=== PATIENT | male | born 1985 | race Caucasian/White ===

== ENCOUNTER 2024-06-28 06:05 | Emergency (ER) | payer MEDICAID, SELFPAY ==
[2024-06-28 06:06] VITALS: BP 110/66; PULSE 79; PULSE 83; RESP 18; TEMP 36.8; O2SAT 95; O2SAT 96
--- NOTE | 2024-06-28 06:23 | EKG_ITS ---
[facility] Test Date: 2024-06-28 Pat Name: HILARY ALCALA Department: Room: - Gender: Male [employer] Super[employer]: : 1985 Requested By: Dhruv Mauricio Order Number: [id number] Reading MD: Dhrvu Mauricio Measurements Intervals [place] Rate: 75 P: 47 NV: 139 QRS: 91 QRSD: 106 T: 48 QT: 357 QTc: 401 Interpretive Statements SINUS RHYTHM BORDERLINE RIGHT AXIS DEVIATION [QRS AXIS > 90] INCOMPLETE RIGHT BUNDLE BRANCH BLOCK [90+ ms QRS DURATION, TERMINAL R IN V1/V2, 40+ ms S IN I/aVL/V4/V5/V6] Compared to ECG 12/25/2017 21:56:32 Incomplete right bundle-branch block now present Sinus bradycardia no longer present /store/S0/[id number]/[id number].pdf
--- NOTE | 2024-06-28 06:23 | XR_ITS ---
Examination: AP chest single view Technique one AP portable upright chest single view Exam date and time: June 28, 2024 at 0711 hrs. Comparison 01/02/2022 Indications: Chest pain today Findings: Normal heart size Lungs are clear. The osseous structures are intact Impression: No active disease
--- NOTE | 2024-06-28 06:37 | EDNOTE_ITS ---
ED Syncope RME/HPI General Chief Complaint: Syncope / Near Syncope Stated Complaint: NEAR SYNCOPE Time Seen by Provider: 06/28/24 06:10 Arrival date/time: 06/28/24 06:05 RME / HPI RME / HPI narrative: Patient is a 39-year-old male recently under treatment for syphilis, gonorrhea, and chlamydia who was brought to the ED on 06/28/2024 in from the [facility] due to syncopal episode on the way to court. Per law enforcement, patient fell backwards and landed on his bottom without hit to head. Patient was then apparently unresponsive to painful stimuli for an estimated 10-15 minutes. Vital signs included BP 90/50, HR 79, RR 16, Temp 97.4, O2 saturation 97%, blood glucose 115. An IV line was started on the patient and he was given 1000 ml. By the time EMS arrived, patient was awake and alert and able to ambulate and respond verbally. Patient reports he is currently in the hospital because he fell but does not remember the events. Currently he is complaining of generalized body pains but no localized pain. He denies any headaches, dizziness, lightheadedness, palpitations, chest pain, or shortness of breath. Patient denies any known rashes or lesions on his body. Patient denies any known family history of cardiac disease, sudden cardiac , or arrhythmias. Patient states he was recently positive for syphilis, gonorrhea, and chlamydia via blood test that he requested and received 1 g IV ceftriaxone yesterday and is currently on doxycycline. Related Data Previous Rx's ?Medication ?Instructions ?Recorded amoxicillin 875 mg-potassium 1 tab PO BID #14 tabs 03/01 clavulanate 125 mg tablet doxycycline hyclate 100 mg capsule 100 mg PO BID #14 c aps 12/18/21 Allergies Allergy/AdvReac Type Severity Reaction Status Date / Time No Known Allergies Allergy Unverified 02/17/20 18:22 Past Medical History Past Medical History Comments PMH COMMENT: Past Medical History: No known past medical history Family History: Father with stroke, no known family history of cardiac disorders or sudden cardiac Surgical History: No surgical history Social History: Previous smoker, occasional former alcohol use, 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 Conversational and non-toxic appearing. HEENT: Normocephalic, atraumatic, mucous membranes moist. Heart: Regular rate and rhythm, no murmurs. Lungs: Clear to auscultation with no wheezing or crackles. Abdomen: Soft, nondistended, nontender, positive bowel sounds. ?No guarding or rebound tenderness. Neurologic: Alert and oriented x3, no gross neurological deficit, and patient able to move all 4 extremities. Extremities: No edema. Patient is handcuffed. Skin: No rash or ecchymoses. Course Quality Measures none Orders Category Date Time Status Bedside COVID-19 Antigen Test NOW Care 06/28/24 06:29 Completed Bedside Influenza A&B Antigen Test NOW Care 06/28/24 06:29 Completed EKG (ED ONLY) *Do not use* NOW Care 06/28/24 06:23 Completed EKG (ED Only) Stat Exams 06/28/24 06:23 Draft XR chest 1V portable Stat Exams 06/28/24 06:23 Completed B-Type Natriuretic Peptide Stat Lab 06/28/24 06:50 Completed CBC Stat Lab 06/28/24 06:50 Completed Comprehensive Metabolic Panel Stat Lab 06/28/24 06:50 Completed Drug Screen,Urine Stat Lab 06/28/24 08:52 Completed Lipase Stat Lab 06/28/24 06:50 Completed Magnesium Stat Lab 06/28/24 06:50 Completed Troponin I Stat Lab 06/28/24 06:50 Completed Urinalysis Stat Lab 06/28/24 08:52 Completed Urinalysis, C/S if Indicated Stat Lab 06/28/24 08:52 Completed Vital Signs Vital signs: Vital Signs Temperature 98.2 F 06/28/24 06:06 Pulse Rate 83 06/28/24 06:06 Respiratory Rate 18 06/28/24 06:06 Blood Pressure 110/66 06/28/24 06:06 Pulse Oximetry (%) 95 06/28/24 06:06 Oxygen Delivery Method Room Air 06/28/24 06:06 Procedures -ED EKG Interpretation #1: Date of EK06/28/24 Time of EK:38 Rate: 75 Interpretation: Interpreted by me EKG Impression: Normal sinus rhythm, No acute ST-T changes, Normal QRS, Normal intervals and Normal axis Additional EKG comment: Normal EKG according to my interpretation Syncope MDM Narrative MDM Narrative:: Lab results, EKG, and CXR results are negative for any sort of acute finding which may have caused a syncope including cardiac arrhythmias, electrolyte disturbances, according to the snapshot of these findings. Currently there is no history or clinical findings to suggest more dangerous etiology including but not limited to pulmonary embolus, aortic dissection, aortic coarctation, stroke, seizure, TIA, Boerhaave's, or GI bleeding. There is a possibility of Jarisch-Herxheimer reaction since the patient received one dose of ceftriaxone yesterday and endorses myalgias, however he is not tachycardic or febrile and not complaining of headache. Patient will be stable for discharge back to [facility]. Patient data External records reviewed:: [facility] previous records and EMS form Clinical information provided by:: patient, EMS and law enforcement Social determinants that could affect healthcare access:: none Patient has the following chronic illnesses:: As above How is presenting disease/condition affected by chronic disease/condition?: uneffected by Evaluation data The following diagnostics were reviewed and interpreted by me:: lab results, radiology exam(s) and EKG tracing(s) Lab and/or radiology exams considered but not ordered:: Ordered Interpretation Summary: EKG is normal according to my interpretation, normal sinus rhythm without ST changes. CXR is normal according to my interpretation, no pneumonia, no vascular congestion. CBC is remarkable for normocytic anemia with Hgb 11.5. WBC is slightly elevated at 14.1 which may be in the setting of chlamydia/gonorrhea and syphilis infection. UA showed positive leukocyte esterase but only 9 WBCs and no bacteria so is negative according to my interpretation. Urine toxicology is negative. Medications / Prescriptions Medications or Prescriptions considered but not ordered:: Given Medication administrations:: Given Consultations Consultation(s) initiated? (list below): No Diagnosis Syncope Differential Diagnosis: syncope due to orthostatic hypotension and vasovagal syncope Most likely diagnosis given after review of the tests above:: Vasovagal syncope Admission Indicated Admission indicated?: not indicated Admission Request Was there a request for admission?: No Disposition Plan Disposition Plan: Discharge Discharge Attestation Discharge Attestation: The patient and all family members were given an opportunity to ask questions and understood the discharge instructions. Discharge instructions specifically effects, indications for sooner follow up or return to the emergency department, and the expected course of current diagnosis. Patient condition: Stable Discharge Plan Plan Patient Disposition: Retirement/Court/Law Disposition Comment: Stable for discharge back to [facility] Patient condition on transfer: Stable Prescriptions/Referrals Prescriptions/Med Rec: No Action amoxicillin-pot clavulanate 875-125 mg tablet 1 tab PO BID Qty: 14 0RF doxycycline hyclate 100 mg capsule 100 mg PO BID Qty: 14 0RF Referrals: No Primary/Family,Physician [Primary Care Provider] - In 1 week Problem List Clinical Impression: Vasovagal syncope, Dehydration, Incarceration Patient/Caregiver Discharge Instructions Education Materials: Causes of Syncope, Dehydration, Treatment for Vasovagal Syncope, Understanding Vasovagal Syncope, ED Fainting, Vagal Reaction Additional Instructions: While in the ER you had several tests done to determine any underlying cause for the fainting episode. You most likely had what is called a vasovagal syncope. This is a benign fainting episode that can happen to anyone, and often can be triggered by dehydration, tight clothing, emotional events, or medications. You lab results show that you are slightly anemic as your hemoglobin level was 11.5 and the normal range is typically 13.5-16.0. Your white blood cell count which is typically a marker for infection or inflammation was also slightly high at 14.1 and the normal range is typically 3.8-10.6. This can be due to the underlying infection that you are already receiving treatment for. Your urine tests were negative for any underlying infection or drug toxicology. We recommend that you see a doctor in the clinic for a follow up of the complete blood count in a few weeks to see if it is still abnormal. Please continue taking your medication as prescribed. Please aggressively hydrate and try to drink 2 liters of water in the next 12 hours. Eat and drink as normal and resume regular activity, no restrictions. Please return to the ED for any worsening of symptoms or sudden weakness, shortness of breath, or chest pain. Print Language: Guamanian Attestation Attestation I, Dhruv Mauricio MD, have reviewed the history, exam, and assessment of the patient. I have evaluated the patient independently and agree with the plan of care documented by [ ]. All diagnostic studies were reviewed and discussed. I confirm the diagnosis as documented by the Resident. I was present during the Medical Decision Making for this patient. The patient's plan of care was created between myself and the Resident and consistent with our discussion of the patient's case. This patient does not appear to be acutely ill in any way medical workup for syncope was negative. Patient stood and walked without any difficulty. He ate and drank without any vomiting and does not appear to be ill in that way. Labs are unremarkable. QT interval was within normal limits on the EKG. It is interesting that he is being treated for syphilis gonorrhea and chlamydia and whether he could be having an early Andrew Herxheimer reaction causing some secondary spacing of fluids causing some relative dehydration is relative possibility. Examination of his body revealed no obvious rash though. Either way he was safe to go back to [facility] and continue his treatments.
--- NOTE | 2024-06-28 07:20 | PC.NURSE ---
REPORT RECEIVED AT THIS TIME; PER REPORT, PT COMING IN FOR NEAR SYNCOPE EPISODE; PT COMING FROM NURSING HOME. PT FOUND IN HIS CELL 'UNRESPONSIVE.' FACILITY STAFF ABLE TO STARTED IV ON PT AND GAVE NS. EN ROUTE WITH EMS, PT WAS RESPONDING TO [facility]. PT DENIES ANY PMH BUT STATES HE WAS TREATED FOR GONORRHEA AND SYPHILIS. PT CONNECTED TO MONITORS AT THIS TIME.
[2024-06-28 07:21] VITALS: BP 104/57; PULSE 70; RESP 14; TEMP 37.1; O2SAT 95
[2024-06-28 07:30] LABS: Basophils % (Auto) 0 % (0-2.5); Eosinophils % (Auto) 0 % (0-10); Hematocrit 34.6 % (41.0-53.0); Hemoglobin 11.5 g/dL (13.5-16.0); Immature Granulocytes % (Auto) 1 % (0-0); Immature Granulocytes Auto 0.07 Thou/mm3 (0.00-0.00); Lymphocytes # (Auto) 0.7 Thou/mm3 (1.0-4.8); Lymphocytes % (Auto) 5 % (10-50); Mean Corpuscular HGB Conc 33.2 g/dl (31.0-37.0); Mean Corpuscular Hemoglobin 29.4 pg (25.0-35.0); Mean Corpuscular Volume 89 fL (80-100); Monocytes # (Auto) 1.5 Thou/mm3 (0.0-0.8); Monocytes % (Auto) 10 % (0-12); Neutrophils # (Auto) 11.8 Thou/mm3 (1.8-7.7); Neutrophils % (Auto) 84 % (37-80); Nucleated Red Blood Cell % 0 /100 WBC (0); Platelet Count 276 Thou/mm3 (140-440); RDW Standard Deviation 40.3 fL (35.1-43.9); Red Blood Count 3.91 Miln/mm3 (4.50-5.90); White Blood Count 14.1 Thou/mm3 (3.8-10.6)
[2024-06-28 07:47] LABS: Alanine Aminotransferase 59 U/L (10-49); Albumin, Serum 3.2 gm/dL (3.5-5.0); Alkaline Phosphatase 86 U/L (46-116); Anion Gap 7 (7-16); Aspartate Amino Transferase 59 U/L (0-34); BUN/Creatinine Ratio 18 Ratio (12-20); Bilirubin,Total 0.2 mg/dL (0.3-1.2); Blood Urea Nitrogen 14 mg/dL (9-23); Calcium 8.5 mg/dL (8.3-10.6); Calcium (Corrected) 9.1 mg/dL (8.5-10.1); Carbon Dioxide 26.3 mMol/L (20.0-31.0); Chloride 105 mMol/L (98-107); Creatinine (Component) 0.8 mg/dL (0.6-1.3); Globulin 3.2 gm/dL (2.3-3.5); Glucose 119 mg/dL (74-106); Lipase 31 U/L (12-53); Magnesium 1.6 mg/dL (1.6-2.6); Osmolality,Calculated 277 (275-295); Sodium 138 mMol/L (136-145); Total Protein 6.4 gm/dL (5.7-8.2); Troponin I < 0.002 ng/mL (0.0-0.045); eGFR > 60 See Note
[2024-06-28 07:51] LABS: B-Type Natriuretic Peptide 37 pg/mL (0-100)
[2024-06-28 09:01] LABS: Collection Type, Urine Clean Catch; Squamous Epithelial Cell,Urine 0 /hpf (0-5)
[2024-06-28 09:12] LABS: Bilirubin,Urine Negative (Negative); Blood,Urine Negative (Negative); Clarity,Urine Clear (Clear/Hazy); Color,Urine Lt-Yellow (Lt Yel-Yel); Culture Indicated,Urine Not Indicated; Glucose, Urine Negative (Negative); Ketones,Urine Negative (Negative); Leukocyte Esterase,Urine Positive (Negative); Nitrite,Urine Negative (Negative); PH,Urine 6.5 (5.0-7.0); Protein,Urine Negative (Neg - Trace); RBC,Urine 1 /hpf (0-3); Specific Gravity,Urine 1.015 (1.001-1.035); Urobilinogen,Urine Negative mg/dL (0.0-1.0); WBC,Urine 9 /hpf (0-5)
[2024-06-28 09:18] LABS: Amphetamine/Methamp Scrn,U Negative (Negative); Barbiturate Screen,Urine Negative (Negative); Benzodiazepines Screen,Urine Negative (Negative); Benzoylecgonine Screen, Ur Negative (Negative); Fentanyl Screen,Urine Negative (Negative); Opiate Screen,Urine Negative (Negative); THC Screen,Urine Negative (Negative)
[2024-06-28 09:47] VITALS: BP 101/96; PULSE 69; RESP 14; TEMP 36.8; O2SAT 97
--- NOTE | 2024-06-28 11:09 | PC.NURSE ---
PER DR. MAHMOOD, PO CHALLENGE AND AMBUALTE PT. PT GIVEN TURKEY SANDWICH AND APPLE JUICE. PT ATE 100% OF SANDWICH AND DRANK ALL OF APPLE JUICE. PT AMBULATED AROUND ROOM WITH STEADY GAIT INDEPENDENTLY.
[2024-06-28 11:10] VITALS: BP 113/65; PULSE 788; RESP 18; TEMP 36.8
== END 2024-06-28 11:17 ==
PROVIDERS: Emergency Provider Emergency Medicine
DX: R55 Syncope and collapse (principal); E86.0 Dehydration
CPT/HCPCS: 36415; 71045; 80053; 80307; 81001; 83690; 83735; 83880; 84484; 85025; 87400; 87811; 93005; 99283

== ENCOUNTER 2024-07-17 23:11 | Emergency (ER) | payer MEDICAID, SELFPAY ==
[2024-07-17 23:14] VITALS: PULSE 70; RESP 18; O2SAT 99
--- NOTE | 2024-07-17 23:28 | PC.NURSE ---
PATIENT NOTED TO BE LAYING ON LOBBY FLOOR, THIS NURSE SPOKE WITH PATIENT. PATIENT DENIES FALLING. PATIENT STATES THAT HE LAID DOWN ON FLOOR TO GET MORE COMFORTABLE AND DID NOT FALL. PATIENT GIVEN TWO PILLOWS FOR COMFORT AND ASSISTED BACK INTO CHAIR.
[2024-07-18 00:56] VITALS: BP 116/73; PULSE 86; RESP 18; TEMP 36.6; O2SAT 99; BMI 29.5
--- NOTE | 2024-07-18 01:00 | XR_ITS ---
Examination: Abdomen sonogram, Limited Date and time of exam: July 18, 2024 0153 hrs. Indications: Right groin pain today Technique: Real-time hair scale transabdominal sonographic images of the right groin obtained. Findings: No hernia or free fluid or mass in the right groin noted Impression: Negative examination
--- NOTE | 2024-07-18 01:03 | PD.EDRME ---
Rapid Medical Screening Exam RME Arrival date/time: 07/17/24 23:11 39 yo m with c/o of ongoing right groin pain hx of hernia I have greeted and performed a focused initial assessment of this patient. A comprehensive ED assessment and evaluation of the patient, analysis of all test results, and completion of the medical decision making process will be conducted by additional ED providers. Chief Complaint: Abdominal Pain Time Seen by Provider: 07/18/24 00:48 Vital signs: Vital Signs Temperature 97.9 F 07/18/24 00:56 Pulse Rate 86 07/18/24 00:56 Respiratory Rate 18 07/18/24 00:56 Blood Pressure 116/73 07/18/24 00:56 Pulse Oximetry (%) 99 07/18/24 00:56 Oxygen Delivery Method Room Air 07/18/24 00:56
[2024-07-18] MEDS: ACETAMINOPHEN 500 MG TABLET 1000 MG PO (01:08)
--- NOTE | 2024-07-18 02:44 | PRELIM_ITS ---
Limited abdominal ultrasound; dated July 18, 2024 at 0153 hours Clinical history: Right pelvic pain, r/o hernia. Findings and Impression: Limited images of the right groin are submitted. No hernia or collection is demonstrated. No free fluid is seen. Report Electronically Signed By: Red Fried 07/18/2024 2:43:30 AM [EST]
[2024-07-18 05:36] VITALS: BP 107/58; PULSE 53; RESP 17; TEMP 36.4; O2SAT 99
[2024-07-18] MEDS: ONDANSETRON ODT 4 MG TABRAP PO (06:56)
[2024-07-18 07:50] LABS: Basophils % (Auto) 0 % (0-2.5); Eosinophils % (Auto) 0 % (0-10); Hematocrit 42.9 % (41.0-53.0); Hemoglobin 14.3 g/dL (13.5-16.0); Immature Granulocytes % (Auto) 0 % (0-0); Immature Granulocytes Auto 0.03 Thou/mm3 (0.00-0.00); Lymphocytes # (Auto) 1.2 Thou/mm3 (1.0-4.8); Lymphocytes % (Auto) 14 % (10-50); Mean Corpuscular HGB Conc 33.3 g/dl (31.0-37.0); Mean Corpuscular Hemoglobin 29.5 pg (25.0-35.0); Mean Corpuscular Volume 89 fL (80-100); Monocytes # (Auto) 0.6 Thou/mm3 (0.0-0.8); Monocytes % (Auto) 6 % (0-12); Neutrophils % (Auto) 79 % (37-80); Nucleated Red Blood Cell % 0 /100 WBC (0); Platelet Count 254 Thou/mm3 (140-440); RDW Standard Deviation 42.5 fL (35.1-43.9); Red Blood Count 4.84 Miln/mm3 (4.50-5.90); White Blood Count 8.9 Thou/mm3 (3.8-10.6)
[2024-07-18 08:05] LABS: Alanine Aminotransferase 18 U/L (10-49); Albumin, Serum 4.9 gm/dL (3.5-5.0); Albumin/Globulin Ratio 1.3 (1.2-2.2); Alkaline Phosphatase 84 U/L (46-116); Anion Gap 6 (7-16); Aspartate Amino Transferase 19 U/L (0-34); BUN/Creatinine Ratio 18 Ratio (12-20); Bilirubin,Total 0.6 mg/dL (0.3-1.2); Blood Urea Nitrogen 18 mg/dL (9-23); Calcium 10.1 mg/dL (8.3-10.6); Calcium (Corrected) 10.1 mg/dL (8.5-10.1); Carbon Dioxide 30.6 mMol/L (20.0-31.0); Chloride 104 mMol/L (98-107); Estimated Creatinine Clearance 111.5 mL/min (>60); Globulin 3.7 gm/dL (2.3-3.5); Glucose 122 mg/dL (74-106); Osmolality,Calculated 284 (275-295); Potassium 4.3 mMol/L (3.4-5.1); Sodium 141 mMol/L (136-145); Total Protein 8.6 gm/dL (5.7-8.2); eGFR > 60 See Note
--- NOTE | 2024-07-18 08:25 | EDNOTE_ITS ---
ED Abdominal Pain RME/HPI General Chief Complaint: Abdominal Pain Stated complaint: RIGHT GROIN PAIN Time seen by provider: 07/18/24 00:48 Arrival date/time: 07/17/24 23:11 39-year-old male with no known medical history presents to the emergency room with a chief complaint of right lower groin pain x 1 week. Patient states he has a history of a hernia. Source: patient Mode of arrival: ambulatory Limitations: no limitations RME / HPI RME / HPI narrative: 07/17/24 23:11 39 yo m with c/o of ongoing right groin pain hx of hernia I have greeted and performed a focused initial assessment of this patient. A comprehensive ED assessment and evaluation of the patient, analysis of all test results, and completion of the medical decision making process will be conducted by additional ED providers. Related Data Previous Rx's ?Medication ?Instructions ?Recorded amoxicillin 875 mg-potassium 1 tab PO BID #14 tabs 03/01 clavulanate 125 mg tablet doxycycline hyclate 100 mg capsule 100 mg PO BID #14 c aps 12/18/21 ondansetron 4 mg disintegrating 4 mg PO Q8H PRN nausea and 07/18/24 tablet vomiting #14 tabs Allergies Allergy/AdvReac Type Severity Reaction Status Date / Time No Known Allergies Allergy Verified 07/17/24 23:16 Review of Systems Review of Systems Systems Reviewed: All systems reviewed, normal except as documented Constitutional Constitutional: Reports system reviewed and no additional complaints, except as documented, Denies fatigue, Denies fever(s), Denies headache(s) and Denies weakness Eyes Eyes: Reports system reviewed and no additional complaints, except as documented, Denies blurry vision and Denies change in vision ENT Ears, Nose, Mouth, and Throat: Reports system reviewed and no additional complaints, except as documented, Denies otalgia, Denies headache(s), Denies nasal congestion, Denies throat swelling and Denies vertigo Cardiovascular Cardiovascular: Reports system reviewed and no additional complaints, except as documented, Denies chest pain, Denies dyspnea and Denies dyspnea on exertion Respiratory Respiratory: Reports system reviewed and no additional complaints, except as documented, Denies chest congestion, Denies cough, Denies dyspnea, Denies dyspnea on exertion and Denies wheezing Gastrointestinal Gastrointestinal: Reports system reviewed and no additional complaints, except as documented, Reports abdominal pain, Reports cramping, Reports nausea and Reports vomiting Genitourinary Genitourinary: Reports system reviewed and no additional complaints, except as documented, Denies dysuria and Denies hematuria Musculoskeletal Musculoskeletal: Reports system reviewed and no additional complaints, except as documented and Denies back pain Integumentary/Breasts Skin/Breast: Reports system reviewed and no additional complaints, except as documented and Denies wounds Neurologic Neurologic: Reports system reviewed and no additional complaints, except as documented, Denies confusion, Denies headache(s), Denies lack of coordination, Denies vertigo and Denies weakness Psychiatric Psychiatric: Reports system reviewed and no additional complaints, except as documented, Denies anxiety, Denies confusion, Denies depression, Denies paranoia, Denies suicidal ideation and Denies tactile hallucinations Endocrine Endocrine: Reports system reviewed and no additional complaints, except as documented and Denies fatigue Hematologic/Lymphatic Hematologic/Lymphatic: Reports system reviewed and no additional complaints, except as documented and Denies lymphadenopathy Allergic/Immunologic Allergic/Immunologic: Reports system reviewed and no additional complaints, except as documented, Denies throat swelling, Denies urticaria and Denies wheezing Past Medical History Past Medical History CARDIAC: Negative Congestive Heart Failure RESPIRATORY: Negative Chronic Obstructive Pulmonary Disease (COPD) GENITOURINARY: Negative Renal Disease ENDOCRINE: Negative Diabetes Mellitus Type 1 or Diabetes Mellitus Type 2 Social History SMOKING STATUS: Current every day smoker ED Exam General Limitations: Present no limitations General appearance: Present alert and in no apparent distress Head Head exam: Present atraumatic Eye Eye exam: Present normal appearance, PERRL and EOMI ENT ENT exam: Present normal exam, normal oropharynx and mucous membranes moist Neck Neck exam: Present normal inspection, full ROM and trachea midline Chest Chest inspection: Present normal inspection and symmetric chest wall rise Respiratory Respiratory exam: Present normal lung sounds bilaterally Cardiovascular Cardiovascular exam: Present regular rate, normal rhythm and normal heart sounds Abdominal Exam Abdominal exam: Present soft, tenderness and normal bowel sounds; Absent tendern ess at [place]'s Point Abdominal tenderness: Present RLQ and mild Extremities Exam Extremities exam: Present normal inspection and full ROM Back Exam Back exam: Present normal inspection and full ROM Neurological Exam Neurological exam: Present alert, oriented X3 and CN II-XII intact Psychiatric Psychiatric exam: Present normal affect and normal mood Skin Skin exam: Present warm, dry, intact and normal color Course Quality Measures none Orders Category Date Time Status US abdomen limited Stat Exams 07/18/24 01:00 Taken CBC Stat Lab 07/18/24 07:07 Completed CMP [Comprehensive Metabolic Panel] Stat Lab 07/18/24 07:07 Completed Acetaminophen Tab [Tylenol ES Tab] Med 07/18/24 01:01 Discontinued 1,000 mg PO X1 ONE Ondansetron Odt [Zofran Odt] Med 07/18/24 06:36 Discontinued 4 mg PO X1 ONE Vital Signs Vital signs: Vital Signs Temperature 97.9 F 07/18/24 00:56 Pulse Rate 86 07/18/24 00:56 Respiratory Rate 18 07/18/24 00:56 Blood Pressure 116/73 07/18/24 00:56 Pulse Oximetry (%) 99 07/18/24 00:56 Oxygen Delivery Method Room Air 07/18/24 00:56 O2 saturation 99% within normal limits Abdominal Pain MDM MDM Narrative MDM Narrative:: 39-year-old male with no known medical history presents to the emergency room with a chief complaint of right lower groin pain x 1 week. Patient states he has a history of a hernia. Patient is hemodynamically stable and in no apparent distress Physical examination shows a soft nontender abdomen. Patient states he has mild tenderness with palpation to right lower groin area. An ultrasound of the abdomen was completed and was negative for any acute findings. There is no signs of any strangulated hernia. CBC and CMP were negative for any leukocytosis, electrolyte imbalance, or low H&H. Patient was discharged and educated to follow-up with his primary care provider in the next 24 to 48 hours and return to the emergency room for any evidence of worsening signs or symptoms Patient data External records reviewed:: [facility] previous records Clinical information provided by:: patient Social determinants that could affect healthcare access:: none Patient has the following chronic illnesses:: No chronic illness How is presenting disease/condition affected by chronic disease/condition?: no chronic disease Evaluation data The following diagnostics were reviewed and interpreted by me:: lab results and radiology exam(s) Lab and/or radiology exams considered but not ordered:: Labs and radiology exams considered and ordered Interpretation Summary: Ultrasound abdomen-Limited abdominal ultrasound; dated July 18, 2024 at 0153 hours Clinical history: Right pelvic pain, r/o hernia. Findings and Impression: Limited images of the right groin are submitted. No hernia or collection is demonstrated. No free fluid is seen. Medications / Prescriptions Medications or Prescriptions considered but not ordered:: Medication given Medication administrations:: Medication Administration History Discontinued Medications Acetaminophen (Acetaminophen 500 Mg Tablet) 1,000 mg PO X1 ONE Stop: 07/18/24 01:02 Last Admin: 07/18/24 01:08 Dose: 1,000 mg Documented By: TAYLOR Ondansetron HCl (Ondansetron Odt 4 Mg Tabrap) 4 mg PO X1 ONE; Protocol Stop: 07/18/24 06:37 Last Admin: 07/18/24 06:56 Dose: 4 mg Documented By: CATHI Medication given Consultations Consultation(s) initiated? (list below): No Diagnosis Differential diagnosis abdominal pain: abdominal pain, acute appendicitis, constipation, gastroenteritis and small bowel obstruction Most likely diagnosis given after review of the tests above:: Gastroenteritis Admission Indicated Admission indicated?: not indicated Admission Request Was there a request for admission?: No Disposition Plan Disposition Plan: Discharge Discharge Attestation Discharge Attestation: The patient and all family members were given an opportunity to ask questions and understood the discharge instructions. Discharge instructions specifically effects, indications for sooner follow up or return to the emergency department, and the expected course of current diagnosis. Patient condition: Stable Discharge Plan Plan Patient Disposition: HOME (Self Care) Disposition Comment: Stable Prescriptions/Referrals Prescriptions/Med Rec: New ondansetron 4 mg tablet,disintegrating 4 mg PO Q8H PRN (Reason: nausea and vomiting) Qty: 14 0RF No Action amoxicillin-pot clavulanate 875-125 mg tablet 1 tab PO BID Qty: 14 0RF doxycycline hyclate 100 mg capsule 100 mg PO BID Qty: 14 0RF Referrals: No Primary/Family,Physician [Primary Care Provider] - In 1 week Problem List Clinical Impression: Gastroenteritis Patient/Caregiver Discharge Instructions Education Materials: ED Gastroenteritis, Noninfectious Additional Instructions: Please follow-up with your primary care provider in the next 24 to 48 hours. Ultrasound of your lower abdomen was completed and was negative for any acute findings. Your blood work was drawn and there are no signs of infection or any acute findings. For any evidence of worsening signs or symptoms return to the emergency room immediately Print Language: Bangladeshi Stand Alone Forms: [employer] Award Info., Patient Portal Info Letter MALISSA/ROULA Supervising Physician MALISSA/ROULA Supervising Physician: Dr. Mauricio
== END 2024-07-18 08:31 | disposition home or self-care (01) ==
PROVIDERS: Nurse Practitioner Family; Emergency Provider Emergency Medicine
DX: K52.9 Noninfective gastroenteritis and colitis, unspecified (principal)
CPT/HCPCS: 36415; 76705; 80053; 81001; 85025; 99284; Q0162; A9270

== ENCOUNTER 2024-07-18 11:08 | Observation (INO) | payer MEDICAID, SELFPAY ==
[2024-07-18 11:10] VITALS: BMI 29.5
--- NOTE | 2024-07-18 11:22 | XR_ITS ---
EXAMINATION: CT abdomen pelvis wo con ORDERING PROVIDER: ROULA Pham HISTORY: abd pain TECHNIQUE: Without intravenous or oral contrast, CT was used in the volumetric, helical imaging acquisition of the abdomen and pelvis with 2-D and 3-D reformats generated on a separate workstation and submitted for interpretation. Institutional dose reducing protocols were utilized. Evaluation of hollow viscus and solid viscera is limited secondary to lack of intravenous and oral contrast. Imaging is motion degraded. RADIATION DOSE: DLP 402 mGy-cm COMPARISON: Same day abdominal ultrasound. FINDINGS: LIVER: Unremarkable. BILIARY: Unremarkable. PANCREAS: Unremarkable. SPLEEN: Unremarkable. ADRENAL GLANDS: Unremarkable. KIDNEYS: Unremarkable. URETERS: Unremarkable. BLADDER: Unremarkable. CT provides limited evaluation of the urinary bladder. HOLLOW VISCUS: There is a moderate colonic stool burden. Sigmoid colon is relatively decompressed. Extensive fecalization of the distal ileum is identified, which measures up to 3.2 cm. There is a small amount of free fluid about the cecum and terminal ileum. The appendix is nondilated. There is a small hiatal hernia. The stomach and proximal duodenum are significantly distended with ingested material. There is suggestion of some wall thickening of the terminal ileum with mild surrounding inflammatory changes. VASCULATURE: Limited evaluation without contrast. Grossly unremarkable. PELVIS: Normal. LYMPH NODES: There is a mildly enlarged left inguinal lymph node measuring up to 1.2 cm short axis, with additional prominent bilateral inguinal, pelvic sidewall, mesenteric, and retroperitoneal lymph nodes, which are not pathologically enlarged by imaging criteria. LUNG BASES: Normal. BONES: Mild degenerative changes bilateral hips in an osteoarthritic pattern. Small osteophytes thoracolumbar spine. ABDOMINAL WALL: Fat filled right greater than left inguinal canals, with small amount of pericecal fluid extending into the canal, where there is a 3.4 x 3.8 x 6.0 (AP by TV by CC) fluid collection measuring 16 Hounsfield units. IMPRESSION: 1. Fat and fluid filled right inguinal hernia, with pericecal and terminal ileum fluid/inflammatory changes with suggestion of mild wall thickening and distention of fecalized distal ileum. This could be the result of the cecum and terminal ileum being transiently incarcerated in the right inguinal hernia, resulting in upstream obstruction, and the incarcerated bowel spontaneously reducing before the CT. Additional differential considerations would include inflammatory bowel disease with inflammation and fluid extending into a right inguinal hernia or possibly sequelae of right testicular torsion. Consider surgical evaluation. 2. Mild left inguinal lymphadenopathy in the setting of prominent inguinal, pelvic, and abdominal, and retroperitoneal lymph nodes. These may be reactive or related to other systemic disease. Recommend correlation with history and clinical exam.
[2024-07-18 11:24] VITALS: BP 128/83; PULSE 104; RESP 18; TEMP 36.8; O2SAT 99
--- NOTE | 2024-07-18 11:26 | PD.EDABDPN ---
ED Abdominal Pain RME/HPI General Chief Complaint: Abdominal Pain Stated complaint: Lower and center abdominal pain, NV. Hernia dx Time seen by provider: 07/18/24 11:15 Arrival date/time: 07/18/24 11:08 39-year-old male with no known medical history presents to the emergency room with a chief complaint of 9 out of 10 abdominal pain and nausea. Patient was seen this morning and states his pain has progressively gotten worse Source: patient Mode of arrival: ambulatory Limitations: no limitations Related Data Previous Rx's ?Medication ?Instructions ?Recorded amoxicillin 875 mg-potassium 1 tab PO BID #14 tabs 12/18/21 clavulanate 125 mg tablet doxycycline hyclate 100 mg capsule 100 mg PO BID #14 caps 12/18/21 ondansetron 4 mg disintegrating 4 mg PO Q8H PRN nausea and 07/18/24 tablet vomiting #14 tabs Allergies Allergy/AdvReac Type Severity Reaction Status Date / Time No Known Allergies Allergy Verified 07/17/24 23:16 Review of Systems Review of Systems Systems Reviewed: All systems reviewed, normal except as documented Constitutional Constitutional: Reports system reviewed and no additional complaints, except as documented, Denies fatigue, Denies fever(s), Denies headache(s) and Denies weakness Eyes Eyes: Reports system reviewed and no additional complaints, except as documented, Denies blurry vision and Denies change in vision ENT Ears, Nose, Mouth, and Throat: Reports system reviewed and no additional complaints, except as documented, Denies otalgia, Denies headache(s), Denies nasal congestion, Denies throat swelling and Denies vertigo Cardiovascular Cardiovascular: Reports system reviewed and no additional complaints, except as documented, Denies chest pain, Denies dyspnea and Denies dyspnea on exertion Respiratory Respiratory: Reports system reviewed and no additional complaints, except as documented, Denies chest congestion, Denies cough, Denies dyspnea, Denies dyspnea on exertion and Denies wheezing Gastrointestinal Gastrointestinal: Reports system reviewed and no additional complaints, except as documented, Reports abdominal pain, Reports cramping, Reports nausea and Reports vomiting Genitourinary Genitourinary: Reports system reviewed and no additional complaints, except as documented, Denies dysuria and Denies hematuria Musculoskeletal Musculoskeletal: Reports system reviewed and no additional complaints, except as documented and Denies back pain Integumentary/Breasts Skin/Breast: Reports system reviewed and no additional complaints, except as documented and Denies wounds Neurologic Neurologic: Reports system reviewed and no additional complaints, except as documented, Denies confusion, Denies headache(s), Denies lack of coordination, Denies vertigo and Denies weakness Psychiatric Psychiatric: Reports system reviewed and no additional complaints, except as documented, Denies anxiety, Denies confusion, Denies depression, Denies paranoia, Denies suicidal ideation and Denies tactile hallucinations Endocrine Endocrine: Reports system reviewed and no additional complaints, except as documented and Denies fatigue Hematologic/Lymphatic Hematologic/Lymphatic: Reports system reviewed and no additional complaints, except as documented and Denies lymphadenopathy Allergic/Immunologic Allergic/Immunologic: Reports system reviewed and no additional complaints, except as documented, Denies throat swelling, Denies urticaria and Denies wheezing Past Medical History Past Medical History CARDIAC: Negative Congestive Heart Failure RESPIRATORY: Negative Chronic Obstructive Pulmonary Disease (COPD) GENITOURINARY: Negative Renal Disease ENDOCRINE: Negative Diabetes Mellitus Type 1 or Diabetes Mellitus Type 2 Social History SMOKING STATUS: Current every day smoker ED Exam General Limitations: Present no limitations General appearance: Present alert and in no apparent distress Head Head exam: Present atraumatic Eye Eye exam: Present normal appearance, PERRL and EOMI ENT ENT exam: Present normal exam, normal oropharynx and mucous membranes moist Neck Neck exam: Present normal inspection, full ROM and trachea midline Chest Chest inspection: Present normal inspection and symmetric chest wall rise Respiratory Respiratory exam: Present normal lung sounds bilaterally Cardiovascular Cardiovascular exam: Present regular rate, normal rhythm and normal heart sounds Abdominal Exam Abdominal exam: Present soft, tenderness and normal bowel sounds; Absent distention, guarding, rebound or rigidity Abdominal tenderness: Present diffuse and moderate Extremities Exam Extremities exam: Present normal inspection and full ROM Back Exam Back exam: Present normal inspection and full ROM Neurological Exam Neurological exam: Present alert, oriented X3 and CN II-XII intact Psychiatric Psychiatric exam: Present normal affect and normal mood Skin Skin exam: Present warm, dry, intact and normal color Course Quality Measures none Orders Category Date Time Status CT abdomen pelvis wo con Stat Exams 07/18/24 11:22 Ordered Drug Screen,Urine Stat Lab 07/18/24 11:23 Ordered UA, C/S IF [Urinalysis, C/S if Indicated] Stat Lab 07/18/24 11:23 Ordered Vital Signs Vital signs: Vital Signs Temperature 98.2 F 07/18/24 11:24 Pulse Rate 104 H 07/18/24 11:24 Respiratory Rate 18 07/18/24 11:24 Blood Pressure 128/83 07/18/24 11:24 Pulse Oximetry (%) 99 07/18/24 11:24 Oxygen Delivery Method Room Air 07/18/24 11:24 O2 saturation 99% within normal limits Abdominal Pain MDM MDM Narrative MDM Narrative:: 39-year-old male with no known medical history presents to the emergency room with a chief complaint of 9 out of 10 abdominal pain and nausea. Patient was seen this morning and states his pain has progressively gotten worse Patient data External records reviewed:: [facility] previous records Clinical information provided by:: patient Social determinants that could affect healthcare access:: none Patient has the following chronic illnesses:: No chronic illness How is presenting disease/condition affected by chronic disease/condition?: no chronic disease Evaluation data The following diagnostics were reviewed and interpreted by me:: lab results and radiology exam(s) Lab and/or radiology exams considered but not ordered:: Labs and radiology exams considered and ordered Interpretation Summary: CT abdomen and pelvis- Medications / Prescriptions Medications or Prescriptions considered but not ordered:: No medication given Medication administrations:: No medication given Consultations Consultation(s) initiated? (list below): No Diagnosis Differential diagnosis abdominal pain: abdominal pain, acute appendicitis, constipation, diverticulitis, gastroenteritis and small bowel obstruction Admission Indicated Admission indicated?: not indicated Admission Request Was there a request for admission?: No Disposition Plan Disposition Plan: Discharge Discharge Attestation Discharge Attestation: The patient and all family members were given an opportunity to ask questions and understood the discharge instructions. Discharge instructions specifically effects, indications for sooner follow up or return to the emergency department, and the expected course of current diagnosis. Patient condition: Stable Discharge Plan Prescriptions/Referrals Prescriptions/Med Rec: No Action amoxicillin-pot clavulanate 875-125 mg tablet 1 tab PO BID Qty: 14 0RF doxycycline hyclate 100 mg capsule 100 mg PO BID Qty: 14 0RF ondansetron 4 mg tablet,disintegrating 4 mg PO Q8H PRN (Reason: nausea and vomiting) Qty: 14 0RF Patient/Caregiver Discharge Instructions Print Language: Omani
--- NOTE | 2024-07-18 12:28 | PD.EDRME ---
Rapid Medical Screening Exam [facility] Arrival date/time: 07/18/24 11:08 39-year-old male with no known medical history presents to the emergency room with a chief complaint of 9 out of 10 abdominal pain and nausea. Patient was seen this morning and states his pain has progressively gotten worse I have greeted and performed a focused initial assessment of this patient. A comprehensive ED assessment and evaluation of the patient, analysis of all test results, and completion of the medical decision making process will be conducted by additional ED providers. Chief Complaint: Abdominal Pain Time Seen by Provider: 07/18/24 11:15 Vital signs: Vital Signs Temperature 98.2 F 07/18/24 11:24 Pulse Rate 104 H 07/18/24 11:24 Respiratory Rate 18 07/18/24 11:24 Blood Pressure 128/83 07/18/24 11:24 Pulse Oximetry (%) 99 07/18/24 11:24 Oxygen Delivery Method Room Air 07/18/24 11:24 Vital signs reviewed by provider: Yes
--- NOTE | 2024-07-18 13:39 | PC.NURSE ---
PT FOUND LAYING ON GROUND OUTSIDE BY BYSTANDER. SECURITY LOOKED BACK ON SECURITY CAMERA, AND PT GOT OUT OF WHEELCHAIR AND LAID HIMSELF ON THE GROUND
[2024-07-18 14:56] VITALS: BP 120/82; PULSE 90; RESP 18; TEMP 36.8; O2SAT 99
--- NOTE | 2024-07-18 16:00 | EDNOTE_ITS ---
ED Abdominal Pain RME/HPI General Chief Complaint: Abdominal Pain Stated complaint: Lower and center abdominal pain, NV. Hernia dx Time seen by provider: 07/18/24 11:15 Arrival date/time: 07/18/24 11:08 RME / HPI RME / HPI narrative: 07/18/24 11:08 39-year-old male with no known medical history presents to the emergency room with a chief complaint of 9 out of 10 abdominal pain and nausea. Patient was seen this morning and states his pain has progressively gotten worse I have greeted and performed a focused initial assessment of this patient. A comprehensive ED assessment and evaluation of the patient, analysis of all test results, and completion of the medical decision making process will be conducted by additional ED providers. Related Data Previous Rx's ?Medication ?Instructions ?Recorded amoxicillin 875 mg-potassium 1 tab PO BID #14 tabs 03/01 clavulanate 125 mg tablet doxycycline hyclate 100 mg capsule 100 mg PO BID #14 c aps 12/18/21 ondansetron 4 mg disintegrating 4 mg PO Q8H PRN nausea and 07/18/24 tablet vomiting #14 tabs Allergies Allergy/AdvReac Type Severity Reaction Status Date / Time No Known Allergies Allergy Verified 07/17/24 23:16 ED Exam Narrative Physical exam: Physical Exam: General: The vital signs were reviewed. The patient is non-toxic, in no apparent distress and appears healthy with a patent airway, no respiratory distress and has no apparent circulatory problems. Head & Scalp: Normocephalic, atraumatic. Face: Appears normal and is without lesions, deformity. Ears: Left external pinna appears normal. Right external pinna appears normal. Eyes: The sclera is anicteric. No obvious photophobia. The Left and Right Orbit/Lid/Conjunctiva appears normal without swelling, discoloration or injection. Nose: The nose is without deformity, discharge or tenderness; Throat: Appears normal. The mucous membranes are pink and moist without exudates, redness or mass seen. The tongue appears normal. Neck: The neck is supple and no apparent mass or adenopathy. Chest: The chest wall is normal in size and symmetry and has no chest wall tenderness or crepitus. The patient displays normal ventilator effort without retractions, accessory muscle use and has adequate air movement bilaterally with no wheezes and no rales. Cardiovascular: Regular rate and rhythm; No murmurs, rubs, or gallops; Gastrointestinal: The abdomen appears distended and diffusely tender. No obvious hernias or mass. There are some laxity in the right inguinal canal. Scrotum is unremarkable. Patient has guarding. Bowel sounds are present and a little hyperdynamic. No CVA tenderness. Genitourinary: Back/Spine: Normal inspection Extremities/Musculoskeletal/lymphatic: The bilateral upper and lower extremities are warm. There is no evidence of arterial insufficiency. There is no evidence of venous insufficiency/edema. The patient spontaneously moves bilateral upper and lower extremities with no pain and no limitation of movement. There is no apparent, injury or trauma. Skin: The skin is warm, dry and intact. No rashes. No petechia. No purpura. No abnormal bruising. The color is appropriate with no cyanosis. Mental status/Psychiatric: Mental status is appropriate for age. The patient has no apparent delusions, visual hallucinations, no apparent audible hallucinations. The patient has no apparent suicidal thoughts/ideation and no apparent homicidal thoughts/ideation. Neurological: The patient is awake, alert, interactive, cordial, cooperative and is oriented to name and situation. The patient follows commands and answers historical question with no impairment. There is no visual disturbance apparent. The pupils are equal and reactive bilaterally with normal eye movements and no diplopia The bilateral upper and lower extremities have normal strength, normal range of motion and normal functioning. The gait, station and balance appear to be baseline with no acute change Course Quality Measures none Orders Category Date Time Status Place in Surgical Day Care Routine Admission 07/18/24 16:35 Active Activity as Tolerated Routine Care 07/18/24 16:35 Ordered NG / OG Tube to LIS NOW Care 07/18/24 16:35 Active NPO NOW Care 07/18/24 16:36 Active Diet NPO (NOW) Diet 07/18/24 16:[address] abdomen pelvis wo con Stat Exams 07/18/24 11:22 Completed EKG (ED Only) Stat Exams 07/18/24 15:39 Stop Req Drug Screen,Urine Stat Lab 07/18/24 11:23 Ordered Lactate (Lactic Acid) Stat Lab 07/18/24 16:05 Completed UA, C/S IF [Urinalysis, C/S if Indicated] Stat Lab 07/18/24 11:23 Ordered Urinalysis Stat Lab 07/18/24 15:39 Ordered Urinalysis, C/S if Indicated Stat Lab 07/18/24 15:39 Ordered Venous Blood Gas Stat Lab 07/18/24 16:05 Completed Acetaminophen Ivpb [Ofirmev Inj] Med 07/18/24 16:45 Active 1,000 mg in 100 ml IV Q6H Ketorolac Inj [Toradol Inj] Med 07/18/24 16:35 Active 15 mg IVP Q6H PRN Ketorolac Inj [Toradol Inj] Med 07/18/24 16:10 Discontinued 15 mg IVP X1 ONE Morphine Inj Med 07/18/24 16:35 Active 4 mg IVP Q4H PRN Ondansetron Inj [Zofran Inj] Med 07/18/24 16:35 Active 4 mg IV Q6H PRN Ringers Lactated 1000 ml [Lactated Ringers] 1,000 ml Med 07/18/24 16:37 Active IV 125 mls/hr Sodium Chloride 0.9% 1000 ml [Ns] 1,000 ml Med 07/18/24 15:39 Discontinued IV 2,000 mls/hr Sodium Chloride 0.9% 1000 ml [Ns] 1,000 ml Med 07/18/24 15:55 Active IV 999 mls/hr bisacodyL [Dulcolax Supp] Med 07/18/24 15:56 Discontinued 10 mg MT X1 ONE Code Status Routine Oth 07/18/24 16:37 Ordered Vital Signs Vital signs: Vital Signs Temperature 98.2 F 07/18/24 11:24 Pulse Rate 104 H 07/18/24 11:24 Respiratory Rate 18 07/18/24 11:24 Blood Pressure 128/83 07/18/24 11:24 Pulse Oximetry (%) 99 07/18/24 11:24 Oxygen Delivery Method Room Air 07/18/24 11:24 Abdominal Pain MDM MDM Narrative MDM Narrative:: Patient was seen earlier today and discharged and comes back with continued abdominal pain has had a bowel movement for 5 days. Patient reports a bulge in the right inguinal canal which reduced right before the CT scan was done. Patient has no testicular pain. Lab workup from earlier today was essentially negative. The CAT scan significant findings agreed to detailed report but appears to be with Dhiraj cecal and terminal ileum fluid and inflammatory changes suggestive of mild wall thickening which could be result from multiple issues including incarcerated hernia that resolved or inflammatory bowel disease. I called Dr. Cruz our surgeon and let her know what was going on and she agreed admit for observation to sort this out further. We can give the patient Dulcolax Speiser and see if we can open them up as his rectal exam was essentially negative with minimal stool and he does not have a bowel obstruction at this time. But he does have multiple loops of bowel with stool in presumably had incarcerated hernia for the last 2 3 days and came in. Get a venous blood gas to make sure there is no acidosis and no ischemic bowel. Both the lactic acid and the venous blood gas came back reassuring that there is no obvious bowel ischemia. Patient vomited. He putrid black substance and since he is got poop backed up into his small bowel even though he does not have a formal small bowel obstruction Dr. Cruz and I both agree he will benefit from NG suction. And Dr. Cruz came down saw the patient agrees with admission. Patient data External records reviewed:: [facility] previous records Clinical information provided by:: patient Social determinants that could affect healthcare access:: none Patient has the following chronic illnesses:: None How is presenting disease/condition affected by chronic disease/condition?: no chronic disease Evaluation data The following diagnostics were reviewed and interpreted by me:: other (specify) (Labs and x-rays as discussed above in the MDM.) Lab and/or radiology exams considered but not ordered:: None Interpretation Summary: See MDM Medications / Prescriptions Medications or Prescriptions considered but not ordered:: Morphine but would make the bowel obstruction or and/or ileus worse Medication administrations:: Medication Administration History Sodium Chloride (Ns) 1,000 mls @ 999 mls/hr IV .Q1H1M ONE Stop: 07/18/24 16:55 Last Admin: 07/18/24 16:17 Dose: 999 mls/hr Documented By: BD Acetaminophen (Ofirmev Inj) 1,000 mg in 100 mls @ 250 mls/hr IV Q6H COUNTS INCLUDE 234 BEDS AT THE [facility] Stop: 07/19/24 11:08 Lactated Ringer's (Lactated Ringers) 1,000 mls @ 125 mls/hr IV .Q8H COUNTS INCLUDE 234 BEDS AT THE [facility] Stop: 08/17/24 16:36 Ketorolac Tromethamine (Ketorolac Inj 30 Mg/Ml Vial) 15 mg IVP Q6H PRN PRN Reason: PAIN SCALE 4-6 (Moderate Stop: 07/23/24 16:34 Morphine Sulfate (Morphine Sulf Inj 10 Mg/Ml Vial) 4 mg IVP Q4H PRN PRN Reason: PAIN SCALE 7-10 (Severe Ondansetron HCl (Ondansetron Inj 2 Mg/Ml Inj 2 Ml) 4 mg IV Q6H PRN; Protocol PRN Reason: NAUSEA Stop: 08/17/24 16:44 Discontinued Medications Bisacodyl (Bisacodyl 10 Mg Supp) 10 mg MT X1 ONE; Protocol Stop: 07/18/24 15:57 Last Admin: 07/18/24 16:16 Dose: 10 mg Documented By: BD Sodium Chloride (Ns) 1,000 mls @ 2,000 mls/hr IV .Q30M ONE Stop: 07/18/24 16:08 Last Admin: 07/18/24 16:18 Dose: Not Given Documented By: BD Non-Admin Reason: Cancelled by Provider Ketorolac Tromethamine (Ketorolac Inj 30 Mg/Ml Vial) 15 mg IVP X1 ONE Stop: 07/18/24 16:11 Last Admin: 07/18/24 16:15 Dose: 15 mg Documented By: BD As above Consultations Consultation(s) initiated? (list below): Yes Diagnosis Differential diagnosis abdominal pain: abdominal pain, constipation and small bowel obstruction Most likely diagnosis given after review of the tests above:: Probably had incarcerated hernia that self reduced causing significant backup of stool and feces with intractable vomiting pain at skin and need time to clear out. Dr. Cruz's admit for observation and start this out further. See the CT report for details. Admission Indicated Admission indicated?: indicated Admission Request Was there a request for admission?: Yes Admission Attestation Admission request attestation: Discussed case with [] from Hospitalist service regarding admission. Discussed patients ED course, exam findings, labs, and radiology results. The Hospitalist [agrees,declines] to accept the patient for admission. Disposition Plan Disposition Plan: Admit Discharge Plan Plan Patient Disposition: Admit Acute Care w/in Hospital Disposition Comment: Dr. Cruz Prescriptions/Referrals Prescriptions/Med Rec: No Action amoxicillin-pot clavulanate 875-125 mg tablet 1 tab PO BID Qty: 14 0RF doxycycline hyclate 100 mg capsule 100 mg PO BID Qty: 14 0RF ondansetron 4 mg tablet,disintegrating 4 mg PO Q8H PRN (Reason: nausea and vomiting) Qty: 14 0RF Referrals: No Primary/Family,Physician [Primary Care Provider] - In 1 week Problem List Clinical Impression: Abdominal pain, Incarcerated hernia Patient/Caregiver Discharge Instructions Print Language: Northern Irish Stand Alone Forms: [facility] Award Info., Patient Portal Info Letter
[2024-07-18] MEDS: KETOROLAC INJ 30 MG/ML VIAL 15 MG IVP (16:15)
[2024-07-18] MEDS: bisacodyL 10 MG SUPP PR (16:16)
[2024-07-18] MEDS: SODIUM CHLORIDE 0.9% 1000 ML 1,000 ML 999 ML IV (16:17)
[2024-07-18 16:23] LABS: Lactate (Lactic Acid) 1.7 mMol/L (0.4-2.0)
--- NOTE | 2024-07-18 16:23 | PC.NURSE ---
PT HAD 30ML OF GREEN BROWN EMESIS FOUL SMELLING,
[2024-07-18 16:24] LABS: Base Excess, Venous 0 (-3-3); O2 Saturation, Venous 66 % (96-97); PCO2, Venous 37 mmHg (36-56); PO2, Venous 34 mmHg (15-58); pH, Venous 7.42 (7.33-7.66)
--- NOTE | 2024-07-18 16:38 | PD.SURHP ---
HPI HPI 39M who presented to ER with abdominal pain, nausea/vomiting. Pt states he is aware he has a R groin hernia and pushed it in this morning, but he continues to have diffuse abdominal pain and vomited once in ER. He has no other complaints, closes his eyes sometimes during questioning not always providing answers. CTAP showed right and left inguinal hernias with the right containing a fluid collection Review of Systems Review of Systems ROS Unobtainable: unobtainable due to mental status Meds Home Medications and Allergies Allergies Allergy/AdvReac Type Severity Reaction Status Date / Time No Known Allergies Allergy Verified 07/17/24 23:16 Exam Vital Signs Temp Pulse Resp BP Pulse Ox O2 Del Method 98.2 F 90 18 120/82 99 Room Air 07/18/24 14:56 07/18/24 14:56 07/18/24 14:56 07/18/24 14:56 07/18/24 14:56 07/18/24 14:56 Constitutional Constitutional: no acute distress Routine Respiratory Exam Respiratory: Present no resp distress Routine Abdominal Exam Abdominal: Present soft and hernia (no palpable inguinal hernia on right or left); Absent tenderness or distended Results Results: Laboratory Laboratory results: results reviewed Results: Imaging CT scan - abdomen: report reviewed and image reviewed Assessment & Plan Plan 39M with known R inguinal hernia which he self-reduced presenting with nausea/vomiting possibly related to having previously incarcerated bowel. As he has ongoing nausea I recommended an NG for now which pt agreed to. I explained that his hernias would best be repaired robotically so that both sides could be addressed, and ideally after his nausea/vomiting has resolved in an elective outpatient setting. NG to LIS Pain control PRN, try to minimize narcotics Quality Measures Quality Measures none
--- NOTE | 2024-07-18 17:00 | PC.NURSE ---
pt came in through lobby for abd pain pt was here last night and discharged this am after ultrasound pt came back with complaints of abd pain. pt is AAoX4 pt adb round distended bowel sounds active X4 quadrants
[2024-07-18] MEDS: ACETAMINOPHEN IVPB 1,000 MG/100 ML VIAL 250 MG IV ×2 (17:02→23:52)
--- NOTE | 2024-07-18 17:25 | PC.NURSE ---
ng tube placed, pt tolerated well immediate drainage hooked to suction
[2024-07-18] MEDS: RINGERS LACTATED 1000 ML 1,000 ML 125 ML IV (18:24)
[2024-07-18 20:10] VITALS: BP 132/94; PULSE 106; RESP 18; TEMP 37.6; O2SAT 99
[2024-07-18 21:36] VITALS: BMI 28.0
[2024-07-18 23:13] LABS: Collection Type, Urine Clean Catch; Squamous Epithelial Cell,Urine 0 /hpf (0-5)
[2024-07-18 23:20] LABS: Bilirubin,Urine Negative (Negative); Blood,Urine Negative (Negative); Clarity,Urine Clear (Clear/Hazy); Color,Urine Lt-Yellow (Lt Yel-Yel); Culture Indicated,Urine Not Indicated; Glucose, Urine Negative (Negative); Ketones,Urine 1+ (Negative); Leukocyte Esterase,Urine Negative (Negative); Nitrite,Urine Negative (Negative); Protein,Urine Negative (Neg - Trace); RBC,Urine < 1 /hpf (0-3); Specific Gravity,Urine 1.015 (1.001-1.035); Urobilinogen,Urine Negative mg/dL (0.0-1.0); WBC,Urine < 1 /hpf (0-5)
[2024-07-18 23:27] LABS: Amphetamine/Methamp Scrn,U Positive (Negative); Barbiturate Screen,Urine Negative (Negative); Benzodiazepines Screen,Urine Negative (Negative); Benzoylecgonine Screen, Ur Negative (Negative); Fentanyl Screen,Urine Negative (Negative); Opiate Screen,Urine Negative (Negative); THC Screen,Urine Negative (Negative)
[2024-07-19] VITALS: BP 124/71; PULSE 88; RESP 18; TEMP 36.4; O2SAT 96
[2024-07-19] MEDS: RINGERS LACTATED 1000 ML 1,000 ML 125 ML IV ×2 (01:41→11:27)
[2024-07-19 04:00] VITALS: BP 107/62; PULSE 75; RESP 18; TEMP 36.4; O2SAT 97
[2024-07-19] MEDS: ACETAMINOPHEN IVPB 1,000 MG/100 ML VIAL 250 MG IV ×2 (06:05→11:42)
[2024-07-19 07:37] VITALS: BP 116/67; PULSE 85; RESP 16; TEMP 36.8; O2SAT 96
[2024-07-19] MEDS: PANTOPRAZOLE INJ 40 MG VIAL IVP (11:33)
[2024-07-19 12:00] VITALS: BP 116/71; PULSE 78; RESP 16; TEMP 36.9; O2SAT 96
--- NOTE | 2024-07-19 14:24 | PD.SURPROG ---
Documentation for date of: 07/19/24 Subjective Subjective Brief History: 39M who presented to ER with abdominal pain, nausea/vomiting. Pt states he is aware he has a R groin hernia and pushed it in this morning, but he continues to have diffuse abdominal pain and vomited once in ER. He has no other complaints, closes his eyes sometimes during questioning not always providing answers. CTAP showed right and left inguinal hernias with the right containing a fluid collection Narrative: Pain much improved today, he is feeling mild discomfort in the upper abdomen. Denies nausea, has passed gas and had a BM, NG has been clamped for 4 hours and pt tolerated well Exam Vital Signs Temp Pulse Resp BP Pulse Ox O2 Del Method 98.4 F 78 16 116/71 96 Room Air 07/19/24 12:00 07/19/24 12:00 07/19/24 12:00 07/19/24 12:00 07/19/24 12:00 07/19/24 12:00 Constitutional Constitutional: no acute distress Routine Respiratory Exam Respiratory: Present no resp distress Routine Abdominal Exam Abdominal: Present soft; Absent tenderness or distended Results Results: Laboratory Laboratory results: results reviewed Results: Imaging CT scan - abdomen: report reviewed and image reviewed Assessment & Plan Plan 39M with known R inguinal hernia which he self-reduced presenting with nausea/vomiting possibly related to having previously incarcerated bowel, symptomatically improved with return of bowel function. Pt is concerned about having repair of his hiatal and inguinal hernias; I explained that it would best be undertaken in an elective setting, when the fluid in the R inguinal canal has resolved and minimally invasively so that he can avoid multiple large incisions. Pt expressed understanding and is agreeable to this plan Reg diet DC if tolerating Will follow up as outpt
--- NOTE | 2024-07-19 14:30 | PD.SURDS ---
Planned Discharge Date 07/19/24 DS: Providers Provider Date of admission: 07/18/24 21:31 Primary care physician: Physician No Primary/Family Admitting Provider: Ashly Johnson MD Attending Provider on Admission: Ashly Johnson MD Consults: 07/18/24 22:24 Referral Infection Control Routine Comment: Reason for Infection Control Referral: Readmitted within 30 days Health [facility]ity Referral - Nutrition Routine Comment: Positive screening for nutrition needs. [facility] Referral - Transportation Routine Comment: Positive screening for transportation needs. Attending Provider on DC: Ashly Johnson MD Discharging Provider: Ashly Johnson MD Diagnosis Discharge Diagnosis (1) Abdominal pain: Status: Acute (2) Inguinal hernia bilateral, non-recurrent: Status: Acute Problem List Completed Was Problem List Reviewed/Reconciled?: Yes Hospital Course Brief History: 39M who presented to ER with abdominal pain, nausea/vomiting. Pt states he is aware he has a R groin hernia and pushed it in this morning, but he continues to have diffuse abdominal pain and vomited once in ER. He has no other complaints, closes his eyes sometimes during questioning not always providing answers. CTAP showed right and left inguinal hernias with the right containing a fluid collection Pt presented with recently reduced R inguinal hernia with nausea/vomiting. His symptoms improved with NG decompression and he now has return of bowel function and is tolerating diet, appropriate for discharge home with outpatient follow up Exam Vital Signs Temp Pulse Resp BP Pulse Ox O2 Del Method 98.4 F 78 16 116/71 96 Room Air 07/19/24 12:00 07/19/24 12:00 07/19/24 12:00 07/19/24 12:00 07/19/24 12:00 07/19/24 12:00 Constitutional Constitutional: no acute distress Routine Respiratory Exam Respiratory: Present no resp distress Routine Abdominal Exam Abdominal: Present soft; Absent tenderness or distended Discharge Plan Problem List Was Problem List Reviewed/Reconciled?: Yes Plan Patient Disposition: HOME (Self Care) Disposition Comment: Dr. Cruz Prescriptions/Referrals Prescriptions/Med Rec: No Action No Known Home Medications Referrals: No Primary/Family,Physician [Primary Care Provider] - In 1 week Ashly Johnson MD [Physician] - (You will receive a phone call to confirm a follow-up appt with me in 2 weeks) Patient/Caregiver Discharge Instructions Education Materials: What Is a Hernia? Print Language: Greenlandic Stand Alone Forms: [facility] Award Info., Patient Portal Info Letter, Work/Release Restrictions Results Results: Laboratory Laboratory results: results reviewed Results: Imaging CT scan - abdomen: report reviewed and image reviewed
--- NOTE | 2024-07-19 15:24 | PC.SS ---
Patient is alert/oriented. Patient was able to verify demographics. Patient states he lives alone. He is independent with ADLs. Patient was here for lower and center abdomen pain. He states he has been putting this off for a long time and that he needs a p.c.p. Patient is open to following up at the [facility]. SS scheduled a follow up appointment for him. Patient may be discharged home later today if he tolerates diet per nursing staff. Patient states he will need transportation home. SS will provide either taxi or Uber. Patient states he will return home and his managed care liaison can assist. Pharmacy: [facility]. Alt medical decision maker: Ashly Penaloza, friend,
[2024-07-19 16:00] VITALS: BP 105/52; PULSE 71; RESP 16; TEMP 36.6; O2SAT 96
--- NOTE | 2024-07-19 17:29 | PC.NURSE ---
Social workNatalia, informed RN that an uber would be set up for this pt at 1700. DELIVERY MOTORCYCLE DRIVER took the pt to the picking machine operator zone in front of the hospital at 1700. DELIVERY MOTORCYCLE DRIVER waited with the pt for 15 minutes. The uber had still not arrived. The pt insisted that he wait by himslef for the uber. The pt is [facility] 15 and ambulatory. The DELIVERY MOTORCYCLE DRIVER informed the hospital security that the pt was waiting for the uber to pick him up. Social workOsvaldo, called RN at 1724 to ask what time we wanted the uber set up for. RN told Osvaldo that we were told the uber was arranged for 1700. Osvaldo stated that he would set up the uber for the pt then go down to the front of the hospital to inform the pt of the uber arrival time.
--- NOTE | 2024-07-19 17:38 | PC.SS ---
[employer] ARCHITECT scheduled UBER transport for the patient. UBER to arrive at 5:39 pm. [employer] ARCHITECT went down to front of hospital to inform patient that [facility] [employer] in route. Patient not present for pickup. [employer] ARCHITECT cancelled UBER ride, provided update to bedside nurse.
== END 2024-07-19 16:58 | disposition home or self-care (01) ==
LOC: SERX 16:05 → S2EX 16:51 → S3NX 07-19 06:23
PROVIDERS: Nurse Practitioner Family; Admitting Provider Surgery; Emergency Provider Emergency Medicine; Visit Provider Surgery
DX: K40.20 Bilateral inguinal hernia, without obstruction or gangrene, not specified as recurrent (principal); K44.9 Diaphragmatic hernia without obstruction or gangrene
CPT/HCPCS: 36415; 74176; 80053; 80307; 80320; 81001; 82140; 82803; 83605; 83880; 84145; 84484; 85025; 85610; 86850; 86900; 86901; 87040; 87081; 96361; 96365; 96366; 96376; 99285; G0378; J0131; J1885; J2470; J7030; J7120; A9270; G0480

== ENCOUNTER 2024-08-01 13:44 | Outpatient (AMB) | payer MEDICAID, SELFPAY ==
[2024-08-01 13:53] VITALS: BP 114/74; PULSE 117; RESP 18; TEMP 36.1; O2SAT 93; BMI 28.5
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
== END 2024-08-01 14:26 | disposition home or self-care (01) ==
LOC: HODSRG 13:44
PROVIDERS: PCP Student in an Organized Health Care Education/Training Program; Referring Provider Student in an Organized Health Care Education/Training Program; Supervising Provider Surgery; Visit Provider Surgery
DX: K40.30 Unilateral inguinal hernia, with obstruction, without gangrene, not specified as recurrent (principal); F17.210 Nicotine dependence, cigarettes, uncomplicated; Z71.6 Tobacco abuse counseling
CPT/HCPCS: 99213; G0463

== ENCOUNTER 2024-10-01 21:43 | Emergency (ER) | payer MEDICAID, SELFPAY ==
[2024-10-01 21:45] VITALS: BP 129/88; PULSE 89; RESP 20; TEMP 36.9; O2SAT 100
[2024-10-01 21:55] VITALS: PULSE 96; RESP 18; O2SAT 98
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
[2024-10-01 22:01] VITALS: BMI 26.6
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
[2024-10-02 03:28] VITALS: BP 130/69; PULSE 80; RESP 20; TEMP 36.8; O2SAT 100
[2024-10-02 05:15] VITALS: BP 147/91; PULSE 88; RESP 16; O2SAT 99
== END 2024-10-02 07:04 | disposition home or self-care (01) ==
PROVIDERS: Emergency Provider Emergency Medicine; PCP Emergency Medicine
DX: S01.81XA Laceration without foreign body of other part of head, initial encounter (principal); S40.211A Abrasion of right shoulder, initial encounter; S80.211A Abrasion, right knee, initial encounter; S19.9XXA Unspecified injury of neck, initial encounter; V00.148A Other scooter (nonmotorized) accident, initial encounter
CPT/HCPCS: 70450; 72125; 73030; 73562; 99284